=== PATIENT | female | born 1955 | race Caucasian/White ===

== ENCOUNTER 2022-03-06 18:34 | Inpatient (IN) | payer MEDICAID, OTHER ==
[~2022-03-06] VITALS: Ht 152.4 cm; Wt 59.0 kg
[2022-03-06 20:37] LABS: BASOPHILS % 0.7 % (0.0-2.0); EOSINOPHILS % 2.6 % (0.0-5.0); HEMATOCRIT. 36.8 % (36.0-48.0); HEMOGLOBIN. 12.1 g/dL (12.0-16.0); LYMPHOCYTES % 15.2 % (20.0-50.0); MEAN CORPUSCULAR HEMOGLOBIN 30.5 pg (28.0-32.0); MEAN CORPUSCULAR VOLUME 93.1 fL (81.0-99.0); MEAN PLATELET VOLUME 7.8 fl (7.4-10.4); MONOCYTES % 14.5 % (2.0-8.0); PLATELET 189 x1000/uL (130-400); RED BLOOD CELL COUNT 3.95 mill/uL (4.2-5.4); RED CELL DISTRIBUTION WIDTH 16.1 % (11.6-14.6)
[2022-03-06 20:45] LABS: CHLORIDE 94 mEq/L (98-107)
[2022-03-07] MEDS ORDERED: ACETAMINOPHEN 325MG TABLET PO PRN (08:30)
[2022-03-07] MEDS ORDERED: ONDANSETRON HCL 4MG/2ML INJ IV PRN (08:30)
[2022-03-07 10:00] VITALS: BP 140/62
[2022-03-07] MEDS ORDERED: DEXTROSE 50% WATER 50ML SYRINGE IV PRN (11:00)
[2022-03-07] MEDS ORDERED: NALOXONE HCL 0.4MG/ML VIAL IV PRN (11:15)
[2022-03-07 12:00] VITALS: BP 129/51
[2022-03-07] MEDS: LOSARTAN POTASSIUM 50 MG TABLET PO SCH ×2 (12:15→17:14)
[2022-03-07] MEDS: BLOOD SUGAR DIAGNOSTIC STRIP TEST SCH ×3 (12:20→21:00)
[2022-03-07] MEDS: OMEPRAZOLE 20MG CAPSULE EXTENDED RELEASE PO SCH ×2 (12:45→22:01)
[2022-03-07] MEDS: INSULIN LISPRO 100 UNITS/ML SUBCUT SCH ×3 (12:50→21:00)
[2022-03-07] MEDS: SEVELAMER CARBONATE 800 MG TABLET PO SCH ×2 (13:20→18:24)
[2022-03-07] MEDS: PIOGLITAZONE 45MG TABLET PO SCH (14:00)
[2022-03-07 16:00] VITALS: BP 150/54
[2022-03-07] MEDS ORDERED: FERR210T PO (16:22)
[2022-03-07] MEDS ORDERED: PIOG45TA62 PO (16:22)
[2022-03-07] MEDS ORDERED: IBUP-2029 PO (16:22)
[2022-03-07] MEDS ORDERED: CINA60TA3 PO (16:22)
[2022-03-07] MEDS ORDERED: GABA-529 PO (16:22)
[2022-03-07] MEDS ORDERED: AMLO10TA80 PO (16:22)
[2022-03-07] MEDS ORDERED: ASPI-986 PO (16:22)
[2022-03-07] MEDS ORDERED: ATOR40TA70 PO (16:22)
[2022-03-07 16:44] LABS: HEPATITIS B SURFACE ANTIGEN NEGATIVE
[2022-03-07] MEDS: HYDROCODONE/ACETAMINOPHEN 5/325MG TABLET PO PRN (17:17)
[2022-03-07 20:00] VITALS: BP 114/56
[2022-03-07] MEDS ORDERED: *PATIENT'S OWN MEDICATION STORAGE XX SCH (20:30)
[2022-03-08] VITALS: BP 136/82
[2022-03-08] MEDS ORDERED: LORAZEPAM 2MG/ML CPJ IV NR (01:00)
[2022-03-08] MEDS ORDERED: MAGNESIUM/ALUMINUM HYDROXIDE/SIMETHICONE 30ML UDC PO NR (01:15)
[2022-03-08 04:00] VITALS: BP 157/71
[2022-03-08] MEDS ORDERED: HYALURONATE SODIUM 10 MG/ML 0.55ML SYRINGE IO ONE (07:01)
[2022-03-08] MEDS: OMEPRAZOLE 20MG CAPSULE EXTENDED RELEASE PO SCH ×2 (07:20→21:00)
[2022-03-08] MEDS ORDERED: ONDANSETRON HCL 4MG/2ML INJ ONE (07:47)
[2022-03-08] MEDS ORDERED: SUCCINYLCHOLINE CHLORIDE 200MG/10ML IV ONE (07:47)
[2022-03-08] MEDS ORDERED: CEFAZOLIN SODIUM 1000MG/VIAL ONE (07:47)
[2022-03-08] MEDS ORDERED: ETOMIDATE 2MG/ML 10ML VIAL IV ONE (07:47)
[2022-03-08] MEDS ORDERED: DEXAMETHASONE 4MG/ML 1ML VIAL ONE (07:47)
[2022-03-08] MEDS ORDERED: ROCURONIUM BROMIDE 10MG/ML VIAL 5ML IV ONE (07:48)
[2022-03-08] MEDS: INSULIN LISPRO 100 UNITS/ML SUBCUT SCH ×4 (07:50→21:00)
[2022-03-08] MEDS ORDERED: FENTANYL CITRATE/PF 50MCG/ML 2ML VIAL ONE (07:51)
[2022-03-08] MEDS ORDERED: MIDAZOLAM HCL 2 MG/2 ML VIAL ONE (07:52)
[2022-03-08 08:00] VITALS: BP 115/76
[2022-03-08] MEDS: BLOOD SUGAR DIAGNOSTIC STRIP TEST SCH ×4 (08:08→21:00)
[2022-03-08] MEDS: SEVELAMER CARBONATE 800 MG TABLET PO SCH ×3 (08:20→18:07)
[2022-03-08] MEDS ORDERED: HYDROMORPHONE HCL/PF 2MG/ML CPJ IV PRN (08:45)
[2022-03-08] MEDS ORDERED: LABETALOL 5MG/ML SYR 20 MG/4 ML SYRINGE IV PRN (08:45)
[2022-03-08] MEDS ORDERED: MEPERIDINE HCL/PF 25MG/ML CPJ IV PRN (08:45)
[2022-03-08] MEDS ORDERED: ONDANSETRON HCL 4MG/2ML INJ IV PRN (08:45)
[2022-03-08] MEDS: PIOGLITAZONE 45MG TABLET PO SCH (09:00)
[2022-03-08] MEDS: LOSARTAN POTASSIUM 50 MG TABLET PO SCH ×2 (09:00→18:00)
[2022-03-08] MEDS ORDERED: NEOSTIGMINE METHYLSULFATE 1MG/ML 10 ML VIAL ONE (09:32)
[2022-03-08] MEDS ORDERED: GLYCOPYRROLATE 0.2 MG/ML 2ML VIAL ONE ×2 (09:32→09:44)
[2022-03-08 16:00] VITALS: BP 151/72
[2022-03-08 20:00] VITALS: BP 166/58
[2022-03-08] MEDS ORDERED: LORAZEPAM 2MG/ML CPJ IV PRN (22:30)
[2022-03-08] MEDS: HYDROCODONE/ACETAMINOPHEN 5/325MG TABLET PO PRN ×2 (22:43→23:20)
[2022-03-08] MEDS ORDERED: MAGNESIUM/ALUMINUM HYDROXIDE/SIMETHICONE 30ML UDC PO PRN (22:44)
[2022-03-09] VITALS (7 sets, daily range): BP systolic 133–175; BP diastolic 51–60
[2022-03-09] MEDS ORDERED: FAMOTIDINE 20MG TABLET PO SCH (07:20)
[2022-03-09] MEDS: BLOOD SUGAR DIAGNOSTIC STRIP TEST SCH ×3 (07:20→17:58)
[2022-03-09] MEDS: INSULIN LISPRO 100 UNITS/ML SUBCUT SCH ×3 (07:50→17:50)
[2022-03-09] MEDS: PIOGLITAZONE 45MG TABLET PO SCH (09:44)
[2022-03-09] MEDS: SEVELAMER CARBONATE 800 MG TABLET PO SCH ×3 (09:45→19:02)
[2022-03-09] MEDS: LOSARTAN POTASSIUM 50 MG TABLET PO SCH ×2 (09:45→19:02)
[2022-03-10 09:11] LABS: IMMUNOGLOBULIN A 295 mg/dL (87-352); IMMUNOGLOBULIN G 2160 mg/dL (586-1602); IMMUNOGLOBULIN M 157 mg/dL (26-217)
[2022-03-10 13:06] LABS: A/G RATIO 0.8 (0.7-1.7); ALBUMIN 3.3 g/dL (2.9-4.4); ALPHA-1-GLOBULIN 0.3 g/dL (0.0-0.4); ALPHA-2-GLOBULIN 0.7 g/dL (0.4-1.0); BETA GLOBULIN 0.9 g/dL (0.7-1.3); GAMMA GLOBULINS 2.2 g/dL (0.4-1.8); GLOBULIN TOTAL 4.1 g/dL (2.2-3.9); M-SPIKE Not Observed g/dL (Not Observed); TOTAL PROTEIN SERUM 7.4 g/dL (6.0-8.5)
== END 2022-03-09 20:05 | disposition home or self-care (01) | DRG 73 ==
LOC: ER 18:34 → EDBEDREQTM 23:01 → EDBEDREQ 23:01 → MICUSO 03-07 01:05 → 6EST 03-07 08:37
PROVIDERS: ADMIT Internal Medicine; ATTEND Internal Medicine
PROC: 5A1D70Z Performance of Urinary Filtration, Intermittent, Less than 6 Hours Per Day (ICD-10-PCS; 2022-03-07)
PROC: 08R Eye, Replacement (ICD-10-PCS; principal; 2022-03-08)
PROC: 5A1D70Z Performance of Urinary Filtration, Intermittent, Less than 6 Hours Per Day (ICD-10-PCS; 2022-03-09)
DX: H16.07 Perforated corneal ulcer (principal); E44.1 Mild protein-calorie malnutrition; I12.0 Hypertensive chronic kidney disease with stage 5 chronic kidney disease or end stage renal disease; N18.6 End stage renal disease; E87.1 Hypo-osmolality and hyponatremia; E11.22 Type 2 diabetes mellitus with diabetic chronic kidney disease; E78.00 Pure hypercholesterolemia, unspecified; E87.8 Other disorders of electrolyte and fluid balance, not elsewhere classified; D64.9 Anemia, unspecified; R10.13 Epigastric pain; Z20.822 Contact with and (suspected) exposure to COVID-19; Z88.6 Allergy status to analgesic agent; Z88.1 Allergy status to other antibiotic agents; Z88.8 Allergy status to other drugs, medicaments and biological substances; Z79.899 Other long term (current) drug therapy; Z90.49 Acquired absence of other specified parts of digestive tract; Z99.2 Dependence on renal dialysis; Z82.49 Family history of ischemic heart disease and other diseases of the circulatory system; Z98.891 History of uterine scar from previous surgery; Z68.25 Body mass index [BMI] 25.0-25.9, adult; Z83.3 Family history of diabetes mellitus; Z56.0 Unemployment, unspecified; Z79.4 Long term (current) use of insulin; Z95.1 Presence of aortocoronary bypass graft
CPT/HCPCS: 36415; 80053; 82784; 82962; 84155; 84165; 85025; 86334; 86705; 86709; 86803; 87070; 87075; 87340; 87426; 88304; 99285; J0330; J0690; J1100; J1815; J2060; J2250; J2405; J2710; J3010; J3490